=== PATIENT | male | born 1970 | race Caucasian/White ===

== ENCOUNTER 2019-11-14 11:00 | Day surgery (SDC) | payer BC ==
[~2019-11-14 11:00] MED LIST: Buffered Lidocaine 1% SYRIN* 1 ML/SYRINGE INTRADERM ONE; Dexamethasone TAB* 4 MG PO ONE; DiMENhydriNATE IV* 50 MG/ML VIAL IV PUSH PRN; Famotidine IV* 10 MG/ML 2 ML (20 mg) IV ONE; HYDROmorphone INJ1* 1 MG/ML SYRINGE IV PRN; Lactated Ringers 1000 ML Bag* 1,000 ML IV SCH; Naloxone* 0.4 MG/ML 1 ML VIAL IV PRN; Ondansetron ODT TAB* 4 MG PO ONE; PROCHLORPERAZINE INJ 5 MG/ML 2 ML VIAL IV PRN; fentaNYL* 50 MCG/ML 2 ML VIAL (100 MCG VIAL) IV PRN; oxyCODONE TAB* 5 MG TAB PO PRN
[2019-11-14] MEDS ORDERED: Dexamethasone TAB* 4 MG ONE (11:43)
[2019-11-14] MEDS ORDERED: Ondansetron ODT TAB* 4 MG ONE (11:43)
[2019-11-14] MEDS ORDERED: Famotidine IV* 10 MG/ML 2 ML (20 mg) ONE (11:44)
[2019-11-14] MEDS ORDERED: Buffered Lidocaine 1% SYRIN* 1 ML/SYRINGE INTRADERM ONE (11:44)
[2019-11-14] MEDS ORDERED: ceFAZolin 2 GM PREMIX in ORs 2 GM/50 ML BAG ONE (11:45)
[2019-11-14] MEDS ORDERED: KETAMINE HCL* 50 MG/ML 10 ML VIAL ONE (12:40)
[2019-11-14] MEDS ORDERED: Midazolam* 1 MG/ML 5 ML VIAL (5 MG) ONE (12:40)
[2019-11-14] MEDS ORDERED: fentaNYL* 50 MCG/ML 2 ML VIAL (100 MCG VIAL) ONE ×2 (12:40→15:05)
[2019-11-14] MEDS ORDERED: Bupivacaine 0.5%* 50 ML MDV VIAL ONE (13:32)
[2019-11-14] MEDS ORDERED: Acetaminophen IV 1GM/100ML * 100 ML ONE (14:35)
[2019-11-14] MEDS ORDERED: ROPIVACAINE 5 MG/ML 30 ML BTL (0.5%) ONE (14:37)
[2019-11-14] MEDS ORDERED: Lidocaine 2% PF * 5 ML VIAL ONE (14:37)
[2019-11-14] MEDS ORDERED: Ketorolac INJ* 30 MG/ML 1 ML VIAL ONE (14:37)
[2019-11-14] MEDS ORDERED: Propofol* 10 MG/ML 20 ML BTL ONE (14:37)
[2019-11-14] MEDS ORDERED: Labetalol IV* 5 MG/ML 20 ML VIAL ONE (15:06)
[2019-11-14] MEDS ORDERED: HYDROmorphone INJ1* 1 MG/ML SYRINGE ONE (16:27)
--- NOTE | 2019-11-14 16:39 | OP ---
Operative Report - Blank - Operative Report Date of Operation: 11/14/19 Note: PATIENT: Ludwin Rodriguez DATE OF : 1970 DATE OF SURGERY: 11/14/2019 SURGEON: Samy Aponte MD SUPERVISOR BEATER ROOM: MARTA Little , whos assistance was necessary for positioning, retraction, help with instrumentation, and closure. ANESTHESIOLOGIST: Dr. Yu PREOPERATIVE DIAGNOSIS: Left bimalleolar ankle fracture POSTOPERATIVE DIAGNOSIS: Left bimalleolar ankle fracture OPERATION: Left bimalleolar ankle fracture open reduction and internal fixation of the lateral and posterior malleoli. ANESTHESIA: General + Block IMPLANTS: Arthrex ankle fracture set plate and screws TOURNIQUET TIME: Less than 2 hours with a well-padded thigh tourniquet at 250mmHg SPECIMENS: none ESTIMATED BLOOD LOSS: minimal COMPLICATIONS: none STATUS: Stable from the operating room to the recovery room and then home. 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 Both operative and non operative treatment alternatives were reviewed. Further, the nature and risks of surgery were reviewed in careful detail, in the office as well as the pre-operative holding area. Our discussions regarding the risks of surgery included, but were not limited to, infection, wound problems, nerve injury, neuroma, RSD, persistent symptoms, blood clot, nonunion, malunion, post- traumatic arthritis, hardware failure, failure of the surgery, and even the remote chance of catastrophic complication. DESCRIPTION OF PROCEDURE: The patient was seen in the preoperative holding unit and informed written consent was obtained. The appropriate extremity was marked. The patient was then brought to the operating room and carefully positioned on the operating room table. Anesthesia was induced. All bony prominences were padded with great care. A well-padded thigh tourniquet was placed. A chlorhexidine based pre- scrub was performed followed by a chloraprep prep and drape in standard sterile fashion. A surgical safety pause was then conducted in which we confirmed the appropriate patient, extremity, planned procedure, availability of equipment, indication and administration of prophylactic antibiotics, and DVT prophylaxis in the form of a compression boot on the non-surgical extremity. I began with Esmarch exsanguination of the limb and inflated the tourniquet. I then utilized a posterolaterally based incision at the ankle. Great care was taken to protect the superficial peroneal and sural nerves, which were not visualized within the field of view. I dissected down through the soft tissue layers to expose the distal fibula and SPR. I then exposed the distal fibula fracture. Fracture hematoma was removed. I gained a reduction utilizing a pointed reduction clamp. I placed an Arthrex anatomic distal fibula plate laterally and then confirmed the reduction and the position of the plate fluoroscopically. I placed screws to hold the plate to the bone. The provisional fixation was removed and then I again confirmed fluoroscopically the appropriate position of the plate and screw lengths. I then found the plane between the peroneals and flexor hallucis longus and dissected into this plane. I exposed the posterior malleolus. I reduced the fracture and this was held provisionally with k-wires. Two 4.0 mm cannulated screws with washers were placed with good compression of the fracture. At this point, I performed a stress fluoroscopic examination, and there was some mild widening of the medial tear space with ankle external rotation. Therefore, I elected to place a syndesmotic tight rope under fluoroscopic guidance. This held the syndesmosis well reduced and improved the stress examination. At this point, we irrigated copiously and then closed in layers meticulously utilizing 3-0 Monocryl for the deep and subdermal layers and 3-0 nylon for the skin. A sterile dressing was then applied followed by a splint with the ankle in a neutral position. The patient was then awakened from anesthesia and transferred to the recovery room in stable condition. There were no complications. All needle and sponge counts were correct at the end of the case. ATTESTATION: I attest I was present and scrubbed and performed the critical portions of the procedure myself. POSTOPERATIVE PLAN: The postop plan is for [id number] for an anticipated duration of 6 weeks. Follow-up will be in 2 weeks. At that time we will likely transition into a [id number] aircast boot.
[2019-11-14 17:29] VITALS: BP 138/86
== END 2019-11-14 17:40 | disposition home or self-care (01) ==
LOC: OR 11:00
PROVIDERS: ATTEND Orthopaedic Surgery
DX: S82.842A Displaced bimalleolar fracture of left lower leg, initial encounter for closed fracture (principal); G89.18 Other acute postprocedural pain; I10 Essential (primary) hypertension; Z88.0 Allergy status to penicillin; V00.211A Fall from ice-skates, initial encounter; Y93.69 Activity, other involving other sports and athletics played as a team or group; Y92.39 Other specified sports and athletic area as the place of occurrence of the external cause
CPT/HCPCS: 76000; A9270-GY; C1713; C1776; J0690; J1170; J1885; J2250; J2704; J2795; J3010; J3490; J8540